=== PATIENT | female | born 1945 | race Caucasian/White ===

== ENCOUNTER → 2024-05-11 10:12 | Outpatient (CLI) | payer MEDICARE, SELFPAY | PROVIDERS: PCP Internal Medicine; Referring Provider Internal Medicine; Visit Provider Surgery | DX: R60.0 Localized edema (principal); R26.9 Unspecified abnormalities of gait and mobility; F17.210 Nicotine dependence, cigarettes, uncomplicated; R06.02 Shortness of breath; R06.01 Orthopnea | CPT/HCPCS: 29580; 99203; 99214 ==

== ENCOUNTER → 2024-05-18 07:27 | Outpatient (CLI) | payer MEDICARE, SELFPAY ==
--- NOTE | 2024-05-18 07:28 | DI.ECHO.S_ITS ---
[facility] : : [address] : : [place] : : [id number] : : Phone: [phone] Echocardiogram Report + + :Name: RAHEL COHEN Study Date: 05/18/2024 Height: 67 in : :Hospital ReadingLocation: Weight: 235 lb : : Gender: Female BSA: 2.2 m2 : :: 1945 Age: 79 yrs BP: 151/92 mmHg: :Reason For Study: BILATERAL LOWER EXTREMITY EDEMA : :Ordering Physician: GRACE, : :NICKOLAS Performed By: Zeynep Dawson : :Referring: NICKOLAS EDWARDS : + + Interpretation Summary 1) Mildly enlarged left ventricle with moderately reduced systolic function (EF 35-40%). 2) Mildly enlarged right ventricle with mildly reduced function. 3) There is mild to moderate tricuspid regurgitation. 4) No prior Echo available for comparison. Procedure: The study quality was technically limited. The study quality was technically adequate. There is no prior echocardiogram noted for this patient. The patient was in atrial flutter with heart rates between 74-89 bpm during the exam. Left Ventricle: The left ventricle is mildly dilated. There is normal left ventricular wall thickness. The ejection fraction is estimated to be 35-40%. There is moderate global hypokinesis of the left ventricle. Right Ventricle: The right ventricle is mildly dilated. Right ventricular systolic function is mildly reduced. Atria: The left atrium is moderately dilated. The right atrium is mildly dilated. Mitral Valve: There is trace mitral regurgitation. Aortic Valve: There is no aortic valve stenosis. Tricuspid Valve: The tricuspid valve leaflets are thin and pliable. The right ventricular systolic pressure is estimated to be at least 41 mmHg based on an estimated right atrial pressure of 8 mm Hg. There is mild to moderate tricuspid regurgitation. Great Vessels: The IVC is dilated (diameter is greater than 2.1 cm) yet it collapses greater than 50% with a sniff. This suggests a right atrial pressure of 8 mm Hg. Pericardium/ Pleura There is no pericardial effusion. There is no pleural effusion. MMode/2D Measurements & Calculations LVIDd: 6.0 cm LVOT diam: 2.1 cm LVIDs: 4.6 cm FS: 23.2 % EPSS: 1.2 cm IVSd: 0.92 cm LVPWd: 0.86 cm LV schwab. diameter/BSA (cm/m^2): 2.8 LV sys. diameter/BSA (cm/m^2): 2.1 LA A2 area: 27.6 cm2 RA long axis: 5.7 cm LA A4 area: 27.2 cm2 RA area: 22.5 cm2 LA length (vol): 6.1 cm RA vol: 76.0 ml LA vol: 103.9 ml RA : 35.1 ml/m2 LA vol index: 48.0 ml/m2 IVC diam: 2.5 cm Doppler Measurements & Calculations Ao V2 max: 139.6 cm/sec LVOT Max Ilia: 86.9 cm/sec Ao V2 mean: 103.0 cm/sec LV V1 max P.0 mmHg Ao max P.8 mmHg LV V1 VTI: 16.2 cm Ao mean P.5 mmHg LOYD(I,D): 2.0 cm2 Ao V2 VTI: 27.4 cm LOYD(V,D): 2.1 cm2 sev ratio: 0.59 LOYD indexed to BSA (cm^2/m^2): 0.90 MV E max ilia: 95.6 cm/sec TR max ilia: 288.1 cm/sec MV A max ilia: 0.91 cm/sec TR max P.2 mmHg MV E/A: 104.8 Med Peak E' Ilia: 6.9 cm/sec E/E' med: 13.9 Lat Peak E' Ilia: 6.4 cm/sec E/E' lat: 14.8 E/e' average: 14.4 MV dec time: 0.18 sec SV(LVOT): 53.5 ml Reading Physician:03:52 PM
== END ==
PROVIDERS: PCP Internal Medicine; Referring Provider Surgery; Visit Provider Surgery
DX: I07.1 Rheumatic tricuspid insufficiency (principal); R60.0 Localized edema
CPT/HCPCS: 93307

== ENCOUNTER → 2024-05-18 14:33 | Outpatient (CLI) | payer MEDICARE, SELFPAY | PROVIDERS: PCP Internal Medicine; Referring Provider Internal Medicine; Visit Provider Surgery | DX: R60.0 Localized edema (principal) | CPT/HCPCS: 29580; 99213 ==

== ENCOUNTER → 2024-06-04 13:06 | Outpatient (CLI) | payer MEDICARE, SELFPAY | LOC: WC 13:06 | PROVIDERS: PCP Internal Medicine; Referring Provider Internal Medicine; Visit Provider Physician Assistant | DX: S80.811A Abrasion, right lower leg, initial encounter (principal); S80.812A Abrasion, left lower leg, initial encounter; R60.0 Localized edema; F17.210 Nicotine dependence, cigarettes, uncomplicated | CPT/HCPCS: 99213; 99214 ==

== ENCOUNTER → 2024-06-09 14:30 | Outpatient (CLI) | payer MEDICARE, SELFPAY | PROVIDERS: PCP Internal Medicine; Referring Provider Internal Medicine; Visit Provider Surgery | DX: L97.821 Non-pressure chronic ulcer of other part of left lower leg limited to breakdown of skin (principal); I87.2 Venous insufficiency (chronic) (peripheral); R60.0 Localized edema; F17.210 Nicotine dependence, cigarettes, uncomplicated | CPT/HCPCS: 97602; 99213 ==

== ENCOUNTER → 2024-06-22 10:23 | Outpatient (CLI) | payer MEDICARE, SELFPAY ==
--- NOTE | 2024-06-22 10:23 | DI.US.S_ITS ---
PROCEDURE: US ARTERIAL DUPLEX LE BI INDICATIONS: ABNORMAL CHRIS. SWELLING. SUPERFICIAL ULCERS BILATERAL. TECHNIQUE: Color and pulse Doppler interrogation was performed of both lower extremity arterial systems, with image documentation. COMPARISON: None. FINDINGS: Right lower extremity: Common femoral artery: 180 cm/sec, with triphasic flow. Deep femoral artery: 66 cm/sec, with triphasic flow. Proximal superficial femoral artery: 162 cm/sec, with triphasic flow. Mid superficial femoral artery: 93 cm/sec, with triphasic flow. Distal superficial femoral artery: 113 cm/sec, with triphasic flow. Popliteal artery: 76 cm/sec, with triphasic flow. Posterior tibial artery: 90 cm/sec, with biphasic flow. dorsalis pedis: 61 cm/sec, with biphasic flow. Garcia-scale imaging description: Mild plaque Left lower extremity: Common femoral artery: 175 cm/sec, with triphasic flow. Deep femoral artery: 88 cm/sec, with triphasic flow. Proximal superficial femoral artery: 127 cm/sec, with triphasic flow. Mid superficial femoral artery: 69 cm/sec, with triphasic flow. Distal superficial femoral artery: 97 cm/sec, with triphasic flow. Popliteal artery: 66 cm/sec, with triphasic flow. Posterior tibial artery: 69 cm/sec, with biphasic flow. Anterior tibial artery/dorsalis pedis: 25 cm/sec, with biphasic flow. Garcia-scale imaging description: Mild plaque IMPRESSION: No evidence of arterial insufficiency to the bilateral lower extremities. Dictated by: Sharon Higgins M.D. on 06/22/2024 at 16:54 Approved by: Sharon Higgins M.D. on 06/22/2024 at 16:56
== END ==
PROVIDERS: PCP Internal Medicine; Referring Provider Physician Assistant; Visit Provider Physician Assistant
DX: R60.0 Localized edema (principal)
CPT/HCPCS: 93925

== ENCOUNTER → 2024-06-23 12:54 | Outpatient (CLI) | payer MEDICARE, SELFPAY | PROVIDERS: PCP Internal Medicine; Referring Provider Internal Medicine; Visit Provider Surgery | DX: L97.812 Non-pressure chronic ulcer of other part of right lower leg with fat layer exposed (principal); I87.2 Venous insufficiency (chronic) (peripheral); R60.0 Localized edema | CPT/HCPCS: 97602; 99213 ==

== ENCOUNTER → 2024-07-07 12:46 | Outpatient (CLI) | payer MEDICARE, SELFPAY | PROVIDERS: PCP Internal Medicine; Referring Provider Internal Medicine; Visit Provider Surgery | DX: L97.812 Non-pressure chronic ulcer of other part of right lower leg with fat layer exposed (principal); I87.2 Venous insufficiency (chronic) (peripheral); R60.0 Localized edema; R26.89 Other abnormalities of gait and mobility; F17.210 Nicotine dependence, cigarettes, uncomplicated | CPT/HCPCS: 99213 ==

== ENCOUNTER → 2024-07-21 14:25 | Outpatient (CLI) | payer MEDICARE, SELFPAY | PROVIDERS: PCP Internal Medicine; Referring Provider Internal Medicine; Visit Provider Surgery | DX: I87.2 Venous insufficiency (chronic) (peripheral) (principal); L97.812 Non-pressure chronic ulcer of other part of right lower leg with fat layer exposed; R60.0 Localized edema; R73.03 Prediabetes; I73.9 Peripheral vascular disease, unspecified; R26.81 Unsteadiness on feet; F17.210 Nicotine dependence, cigarettes, uncomplicated; F10.10 Alcohol abuse, uncomplicated | CPT/HCPCS: 11042; 99213 ==

== ENCOUNTER → 2024-08-11 14:11 | Outpatient (CLI) | payer MEDICARE, SELFPAY | PROVIDERS: PCP Internal Medicine; Referring Provider Internal Medicine; Visit Provider Surgery | DX: L97.812 Non-pressure chronic ulcer of other part of right lower leg with fat layer exposed (principal); I87.2 Venous insufficiency (chronic) (peripheral); R60.0 Localized edema; F17.210 Nicotine dependence, cigarettes, uncomplicated | CPT/HCPCS: 11042 ==

== ENCOUNTER → 2024-08-25 13:43 | Outpatient (CLI) | payer MEDICARE, SELFPAY | PROVIDERS: PCP Internal Medicine; Referring Provider Internal Medicine; Visit Provider Surgery | DX: I87.2 Venous insufficiency (chronic) (peripheral) (principal) | CPT/HCPCS: 99212; 99213 ==